=== PATIENT | male | born 1940 | race Caucasian/White ===

== ENCOUNTER 2016-12-23 10:04 | Day surgery (SDC) | payer MEDICARE, BC ==
[2016-12-23] MEDS ORDERED: LIDOCAINE 2% MDV (20MG/ML) 20ML VIAL IV ONE (14:00)
[2016-12-23] MEDS ORDERED: PROPOFOL 10 MG/ML VIAL IV ONE (14:00)
--- NOTE | 2016-12-25 14:23 | Operative Note ---
Dictated by Rachael Major DATE OF SURGERY: 12/23/2016 OPERATION: Surveillance COLONOSCOPY. ENDOSCOPIST: Reggie Yañez DO WASTE MANAGEMENT ENGINEER: Rachael Major ANESTHESIA: Provided by the anesthesia department with propofol titrated to patient effect. PROCEDURE: The patient had an opportunity to have his questions answered. He signed informed written consent and was taken back to the endoscopy suite. The patient was placed in the left lateral decubitus position and anesthesia was begun. Digital rectal exam was normal, and prostate was normal in palpation. A well-lubricated PCF-180 colonoscope was introduced into the rectum and advanced to the cecum uneventfully. The colon mucosa revealed moderate diverticulosis present in the rectosigmoid colon. The rest of the colon mucosa was normal. Distensibility was normal and the mucosal folds appeared normal. The scope was advanced to the cecum which was identified by the appendiceal orifice and ileocecal valve. Retroflexion was not performed, and so cecum was intubated twice. The scope was then withdrawn uneventfully, and the mucosa appeared normal with normal vascularity, mucosal folds, and distensibility. Bowel prep was good. The colonoscope was retroflexed which revealed [id number] internal hemorrhoids. The scope was then withdrawn completely from the patient. The patient tolerated the procedure well without any complication. IMPRESSION: 1. Moderate diverticulosis in the rectosigmoid colon. 2. [id number] internal hemorrhoids. 3. Otherwise normal colonoscopy to the cecum. RECOMMENDATIONS: Recommend repeat colonoscopy in 10 years as needed. Patient can discuss having procedure done with his PCP and whether or not he would like to have this done. Otherwise, the patient can resume his medications and regular diet. As always, thank you for allowing me to participate in the care of your patient. CC: Dr. Ethel REDD
== END 2016-12-23 13:10 | disposition home or self-care (01) ==
LOC: HOP 10:04
PROVIDERS: ATTEND Internal Medicine Gastroenterology
DX: Z09 Encounter for follow-up examination after completed treatment for conditions other than malignant neoplasm (principal); Z86.010 Personal history of colon polyps; K57.30 Diverticulosis of large intestine without perforation or abscess without bleeding; K64.8 Other hemorrhoids; E78.00 Pure hypercholesterolemia, unspecified; I10 Essential (primary) hypertension; E03.9 Hypothyroidism, unspecified

== ENCOUNTER 2018-01-18 14:10 | Inpatient (IN) | payer MEDICARE, BC ==
[2018-01-18 15:23] LABS: URINE APPEARANCE CLEAR; URINE BILIRUBIN NEGATIVE (NEGATIVE); URINE BLOOD TRACE-I (NEGATIVE); URINE COLOR YELLOW; URINE GLUCOSE (UA) NEGATIVE (NEGATIVE); URINE KETONE NEGATIVE (NEGATIVE); URINE LEUKOCYTE ESTERASE NEGATIVE (NEGATIVE); URINE NITRITE NEGATIVE (NEGATIVE); URINE PROTEIN TRACE (NEGATIVE)
[2018-01-18 15:29] LABS: URINE EPITHELIAL CELLS RARE (FEW); URINE RBC 0 - 2 (NONE SEEN); URINE WBC NONE SEEN (0-2/hpf)
[2018-01-18 15:46] LABS: HEMATOCRIT 37.5 % (42.0-52.0); HEMOGLOBIN 11.9 gm/dl (14.0-18.0); MEAN CELL VOLUME 93.3 fl (81-97); MEAN CORPUSCULAR HEMOGLOBIN 29.6 pg (27-33); MEAN CORPUSCULAR HGB CONC 31.7 g/dl (32-36); MEAN PLATELET VOLUME 10.7 fl (7.4-10.4); PLATELET COUNT 162 K/uL (130-400); RED BLOOD COUNT 4.02 M/uL (4.40-5.70); RED CELL DISTRIBUTION WIDTH 13.5 % (11.5-14.5); WHITE BLOOD COUNT W/O DIFF 16.1 K/uL (4.2-12.2)
--- NOTE | 2018-01-18 15:50 | Emergency Department Record ---
History of Present Illness - General Chief Complaint: Abdominal Pain Stated Complaint: ABDOMINAL PAIN,MIDDLE BACK PAIN,ELEVATED TEMP Time Seen by Provider: 01/18/18 15:00 Source: Patient Mode of Arrival: Ambulatory Limitations: No limitations, Physical limitation - History of Present Illness Initial Comments: pt has been having upper abd pain for 2 days that improves w tylenol but keeps returning. pt had n/v x 1. he had a normal bm with no relief MD Complaint: Abdominal pain, Flank pain Onset/Timin -: Days(s) Location: L Flank, R Flank, LUQ, RUQ Radiation: Back Severity scale (1-10): 5 Quality: Aching Consistency: Constant Improves With: Medication Worsens With: Medication Associated Symptoms: Nausea, Vomiting Treatments Prior to Arrival: NSAIDs - Related Data Home Medications Medication Instructions Recorded Confirmed Last Taken Amlodipine Besylate [Norvasc] 01/18/18 Unknown Aspirin Chewable 01/18/18 Unknown Atorvastatin Calcium 01/18/18 Unknown Levothyroxine Sodium [Synthroid] 01/18/18 Unknown Losartan/Hydrochlorothiazide 01/18/18 Unknown [Losartan-Hctz 100-25 mg Tab] Multivitamin [Multi-Vitamin Daily] 01/18/18 Unknown [place]-3 Fatty Acids/Fish Oil [Fish 1 each PO 01/18/18 Unknown Oil 1,000 mg Capsule] Omeprazole 01/18/18 Unknown Oxybutynin Chloride [Ditropan Xl] 01/18/18 Unknown Allergies Allergy/AdvReac Type Severity Reaction Status Date / Time Penicillins Allergy Intermediate HIVES Verified 01/18/18 15:13 bisoprolol [From Ziac] Allergy Mild HYPERSENSIT Verified 01/18/18 15:13 IVITY hydrochlorothiazide Allergy Mild HYPERSENSIT Verified 01/18/18 15:13 [From Ziac] IVITY Travel Screening - Travel/Exposure Within Last 30 Days Have you traveled within the last 30 days?: Yes Location Detail:: around [place] - Travel/Exposure Within Last Year Have you traveled outside the [place] in the last year?: No - Additonal Travel Details Have you been exposed to anyone with a communicable illness?: No - Travel Symptoms Symptom Screening: Fever (Subjective) Review of Systems Reviewed: No additional complaints except as noted below Constitutional: Reports: As per HPI. Denies: Chills, Fever, Malaise, Night sweats, Weakness, Weight change Eyes: Reports: As per HPI. Denies: Eye discharge, Eye pain, Photophobia, Vision change ENT: Reports: As per HPI. Denies: Congestion, Dental pain, Ear pain, Epistaxis , Hearing loss, Throat pain Respiratory: Reports: As per HPI. Denies: Cough, Dyspnea, Hemoptysis, Stridor, Wheezes Cardiovascular: Reports: As per HPI. Denies: Arrhythmia, Chest pain, Dyspnea on exertion, Edema, Murmurs, Orthopnea, Palpitations, Paroxysmal nocturnal dyspnea, Rheumatic Fever, Syncope Endocrine: Reports: As per HPI. Denies: Fatigue, Heat or cold intolerance, Polydipsia, Polyuria Gastrointestinal: Reports: As per HPI. Denies: Abdominal pain, Constipation, Diarrhea, Hematemesis, Hematochezia, Melena, Nausea, Vomiting Genitourinary: Reports: As per HPI. Denies: Dysuria, Frequency, Hematuria, Incontinence, Retention, Testicular pain, Testicular mass, Urgency Musculoskeletal: Reports: As per HPI. Denies: Arthralgia, Back pain, Gout, Joint swelling, Myalgia, Neck pain Skin: Reports: As per HPI. Denies: Bruising, Change in color, Change in hair/ nails, Lesions, Pruritus, Rash Neurological: Reports: As per HPI. Denies: Abnormal gait, Confusion, Headache, Numbness, Paresthesias, Seizure, Tingling, Tremors, Vertigo, Weakness Psychiatric: Reports: As per HPI. Denies: Anxiety, Auditory hallucinations, Depression, Homicidal thoughts, Suicidal thoughts, Visual hallucinations Hematological/Lymphatic: Reports: As per HPI. Denies: Anemia, Blood Clots, Easy bleeding, Easy bruising, Swollen glands Past Medical History - SOCIAL HISTORY Smoking Status: Never smoker Alcohol Use: None Drug Use: None - RESPIRATORY Hx Respiratory Disorders: Yes Hx Pneumonia: Yes (years ago) Hx Sleep Apnea: Yes Hx of CPAP: Yes - CARDIOVASCULAR Hx Cardio Disorders: Yes Hx Cardiac Cath: Yes (neg) Hx Hypertension: Yes Hx Coronary Stent: No Comment:: bradycardia-no problems - NEURO Hx Neuro Disorders: No - GI Hx GI Disorders: Yes Hx Reflux: Yes Hx of Polyps: Yes - Hx Genitourinary Disorders: Yes Hx Prostate Problems: Yes (enlarge) - ENDOCRINE Hx Endocrine Disorders: Yes Hx Thyroid Disease: Yes - MUSCULOSKELETAL Hx Musculoskeletal Disorders: Yes Hx Arthritis: Yes (bilat knees/hip) - PSYCH Hx Psych Problems: No - HEMATOLOGY/ONCOLOGY Hx Hematology/Oncology Disorders: No Family Medical History Any Significant Family History?: No Hx Cancer: Brother/Sister *Cancer Comment: Prostate ca Physical Exam - General General Appearance: Alert, Oriented x3, Cooperative, Mild distress - Head Head exam: Normal inspection - Eye Eye exam: Normal appearance, PERRL, EOMI Pupils: Normal accommodation - ENT ENT exam: Normal exam, Mucous membranes moist, Normal external ear exam, Normal orophraynx Ear exam: Normal external inspection. negative: External canal tenderness Nasal Exam: Normal inspection. negative: Discharge, Sinus tenderness Mouth exam: Normal external inspection, Tongue normal Teeth exam: Normal inspection. negative: Dental caries Throat exam: Normal inspection. negative: Tonsillar erythema, Tonsillar exudate - Neck Neck exam: Normal inspection, Full ROM. negative: Tenderness - Respiratory Respiratory exam: Normal lung sounds bilaterally. negative: Respiratory distress - Cardiovascular Cardiovascular Exam: Regular rate, Normal rhythm, Normal heart sounds - GI/Abdominal GI/Abdominal exam: Soft, Normal bowel sounds, Tenderness (upper quads) - Rectal Rectal exam: Deferred - exam: Deferred - Extremities Extremities exam: Normal inspection, Full ROM, Normal capillary refill. negative: Tenderness - Back Back exam: Reports: Normal inspection, Full ROM. Denies: Muscle spasm, Rash noted, Tenderness - Neurological Neurological exam: Alert, CN II-XII intact, Normal gait, Oriented X3 - Psychiatric Psychiatric exam: Normal affect, Normal mood - Skin Skin exam: Dry, Intact, Normal color, Warm Course Vital Signs 01/18/18 14:22 Temperature 99.6 F Pulse Rate 69 Respiratory 18 Rate Blood Pressure 113/37 Pulse Ox 94 L Medical Decision Making - Lab Data Result diagrams: 01/18/18 15:40 01/18/18 15:40 Lab Results 01/18/18 Range/Units 15:15 Urine Color Yellow Urine Appearance Clear Urine pH 7.0 (5.0-8.0) Ur Specific [place] 1.010 (1.002-1.030) Urine Protein Trace H (NEGATIVE) Urine Glucose (UA) Negative (NEGATIVE) Urine Ketones Negative (NEGATIVE) Urine Blood Trace-i (NEGATIVE) Urine Nitrite Negative (NEGATIVE) Urine Bilirubin Negative (NEGATIVE) Urine Urobilinogen 2.0 H (0.20 - 1.00) E.U./dL Ur Leukocyte Esterase Negative (NEGATIVE) Urine RBC 0 - 2 (NONE SEEN) Urine WBC None seen (0-2/hpf) Ur Epithelial Cells Rare (FEW) Disposition Disposition: Admit Clinical Impression: Acute cholecystitis Disposition: Still a Patient at [facility] Decision to Admit: Admit from ER Decision to Admit Date: 01/18/18 Decision to Admit Time: 17:01 Forms: Patient Portal Access Quality - Quality Measures Quality Measures: N/A - Blood Pressure Screening Does Patient Have Any of the Following: No Blood Pressure Classification: Normal BP Reading Systolic Measurement: 113 Diastolic Measurement: 37 Screening for High Blood Pressure: < Normal BP, F/U Not Required > [G8783]
[2018-01-18 15:58] LABS: PLATELET ESTIMATE NORMAL (NORMAL)
[2018-01-18 15:59] LABS: BLOOD UREA NITROGEN 15 mg/dL (8-23)
[2018-01-18 16:00] LABS: EST GLOMERULAR FILTRATION RATE > 60 mL/min; TOTAL PROTEIN 7.5 g/dL (6.6-8.7)
[2018-01-18 16:02] LABS: GLUCOSE,RANDOM 123 mg/dL (74-109)
[2018-01-18 16:05] LABS: ALBUMIN 3.8 g/dL (4.0-5.0); ALKALINE PHOSPHATASE 95 U/L (40-129); ALT/SGPT 7 U/L (<41); AST/SGOT 12 U/L (10.0-50.0); BILIRUBIN,DIRECT 0.3 mg/dL (0-0.3)
[2018-01-18] MEDS ORDERED: ERTAPENEM SODIUM 1 G in 0.9 % SODIUM CHLORIDE 100ML 100 ML IVPB ONE (16:58)
[2018-01-18] MEDS ORDERED: ONDANSETRON HCL IV 4 MG/2 ML VIAL IVP PRN (18:07)
[2018-01-18] MEDS ORDERED: ACETAMINOPHEN 500 MG TABLET PO PRN (18:07)
[2018-01-18] MEDS ORDERED: 0.9 % SODIUM CHLORIDE 1000ML 1,000 ML IV PRN (18:07)
[2018-01-18] MEDS: OXYBUTYNIN CHLORIDE 5MG TABLET PO SCH (22:14)
[2018-01-18] MEDS: HYDROMORPHONE HCL 2 MG/ML VIAL IV PRN (22:16)
[2018-01-19] MEDS: HYDROMORPHONE HCL 2 MG/ML VIAL IV PRN (04:34)
[2018-01-19 06:35] LABS: HEMATOCRIT 34.8 % (42.0-52.0); HEMOGLOBIN 10.8 gm/dl (14.0-18.0); MEAN CELL VOLUME 94.1 fl (81-97); MEAN PLATELET VOLUME 11.2 fl (7.4-10.4); PLATELET COUNT 136 K/uL (130-400); RED CELL DISTRIBUTION WIDTH 13.5 % (11.5-14.5); WHITE BLOOD COUNT W/O DIFF 14.8 K/uL (4.2-12.2)
[2018-01-19 06:43] LABS: MEAN CORPUSCULAR HEMOGLOBIN 29.1 pg (27-33)
[2018-01-19] MEDS ORDERED: SYNTHROID (DAW) 175MCG TABLET PO SCH (07:00)
[2018-01-19] MEDS ORDERED: PANTOPRAZOLE SODIUM 40 MG TABLET PO SCH ×2 (07:00→22:00)
--- NOTE | 2018-01-19 07:51 | CT SCAN REPORT ---
EXAM: EMERGENCY CT SCAN OF THE ABDOMEN AND PELVIS WITHOUT CONTRAST HISTORY: BILATERAL FLANK PAIN AND MID BACK PAIN FOR FOUR DAYS. PRIOR HIP REPLACEMENT TEN YEARS AGO AND HERNIA REPAIR. TECHNIQUE: Axial CT scan of the abdomen and pelvis was performed without oral or IV contrast. Comparison: No prior CT with which to compare. FINDINGS: The patient is postop left UMANG creating considerable artifact in the lower pelvis. There appears to be mild thickening of the wall of the gallbladder. In addition , there is hazy density surrounding much of the gallbladder and findings are suspicious for acute cholecystitis. Clinical correlation is suggested. No actual calcified gallstones are seen. No intrarenal calculi identified on either side. No hydronephrosis or hydroureter is seen on either side as well. The distal most aspect of the left ureter is obscured by the extensive left UMANG artifact, but as visualized no definite ureteral calculus is seen on either side and no bladder calculus evident. Evaluation of the bowel and viscera very limited without oral or IV contrast. Given this limitation, no definite hepatic, splenic, adrenal, or pancreatic mass identified. Small exophytic mass arising from the upper pole of the left kidney measures about 1.4 cm in size and has a noncontrast CT density of about 14. This may just represent an incidental cyst, but is incompletely evaluated without IV contrast. If not previously documented, follow-up MRI of the kidneys could be performed for further assessment. There is some hazy density in the adipose tissue in the region of the jose and near the head of the pancreas. This is probably just secondary to presumed acute cholecystitis rather than a primary inflammatory process of the pancreas or duodenum although a duodenitis in particular would be difficult to exclude. Small collection of air along the medial aspect of the descending portion of the duodenal sweep is probably just a small duodenal diverticulum rather than an ulcer. There is some ectasia of the right common iliac artery measuring about 2.3 cm in size. Moderate diverticulosis sigmoid and lower descending colon, but no definite diverticulitis identified. There are segments of the colon that have a slightly thick walled appearance. This is nonspecific and may simply be due to incomplete distention. No appendicitis identified. The cecum is somewhat inverted. Small periumbilical anterior abdominal wall hernia containing adipose tissue, but no bowel. There is some bibasilar interstitial infiltrate right greater than left which could be acute or chronic. No free intraperitoneal air or free intraperitoneal fluid identified. Prominent spurring in the lower thoracic spine and some facet joint arthropathy in the lumbar spine. IMPRESSION: 1. FINDINGS INVOLVING THE GALLBLADDER PROBABLY REPRESENTING ACUTE CHOLECYSTITIS. SOME INFLAMMATORY CHANGE EXTENDS ADJACENT TO THE DUODENUM IN THE REGION OF THE HEAD OF THE PANCREAS. THERE IS A SMALL AIR COLLECTION ALONG THE MEDIAL ASPECT OF THE DESCENDING PORTION OF THE DUODENAL SWEEP. THIS IS PROBABLY JUST A SMALL DIVERTICULUM RATHER THAN DUODENAL ULCER DISEASE AND INFLAMMATORY CHANGES ABOUT THE DUODENUM ARE PROBABLY SECONDARY TO ACUTE CHOLECYSTITIS ALTHOUGH A DUODENITIS WOULD BE DIFFICULT TO EXCLUDE. 2. NO URINARY TRACT CALCULI OR HYDRONEPHROSIS EVIDENT. THE DISTAL LEFT URETER IS OBSCURED BY EXTENSIVE ARTIFACT FROM THE LEFT UMANG. 3. PROMINENT DIVERTICULOSIS LOWER DESCENDING AND SIGMOID COLON, BUT NO DIVERTICULITIS EVIDENT. 4. PROBABLE SMALL UPPER POLE LEFT RENAL CYST ALTHOUGH INCOMPLETELY EVALUATED WITHOUT IV CONTRAST. THIS COULD BE CONFIRMED WITH FOLLOW-UP MRI IF CLINICALLY WARRANTED. 5. SMALL PERIUMBILICAL ANTERIOR ABDOMINAL WALL HERNIA. 6. PROMINENT SPURRING LOWER THORACIC SPINE AND DEGENERATIVE CHANGES IN THE LUMBAR SPINE. JOB NUMBER: [id number] [facility]
[2018-01-19] MEDS: OXYBUTYNIN CHLORIDE 5MG TABLET PO SCH (09:59)
[2018-01-19] MEDS ORDERED: MECLIZINE 25 MG TABLET PO ONE (10:00)
[2018-01-19] MEDS ORDERED: HYDROCHLOROTHIAZIDE 25 MG TABLET PO SCH (10:00)
[2018-01-19] MEDS ORDERED: FAMOTIDINE 20MG TABLET PO ONE (10:00)
[2018-01-19] MEDS ORDERED: ACETAMINOPHEN 1,000 MG/100 ML BTL IV ONE (10:00)
[2018-01-19] MEDS ORDERED: AMLODIPINE BESYLATE 5MG TAB PO SCH (10:00)
[2018-01-19] MEDS ORDERED: ASPIRIN 81 MG CHEWABLE TABLET PO SCH ×2 (10:00→22:00)
[2018-01-19] MEDS ORDERED: METOCLOPRAMIDE 10 MG TABLET PO ONE (10:00)
[2018-01-19] MEDS ORDERED: LOSARTAN POTASSIUM 100 MG TABLET PO SCH (10:00)
--- NOTE | 2018-01-19 12:11 | History and Physical Report ---
DATE: 01/19/2018 CHIEF COMPLAINT: Abdominal pain. HISTORY OF PRESENT ILLNESS: The patient is a 77-year-old male who had about a 4-day history of abdominal pain. This did settle in his right upper quadrant. He was nauseated with this, and the pain became so great he was seen at [facility] ER. He was seen in the ER where a full workup was done. This did include imaging studies as well as laboratory values. He had an elevated white blood cell count at around 16,000. CT scan was done which did show findings consistent with acute cholecystitis. He had pericholecystic fluid, edema, mild gallbladder wall thickening. He also had some adjacent inflammation of his duodenum secondary to reactive from his cholecystitis. He states that he has had some mild issues with biliary colic in the past. PAST MEDICAL HISTORY: Significant for hypertension, sleep apnea, urinary incontinence. PAST SURGICAL HISTORY: Left hip replacement, right inguinal hernia, heart catheterization. CURRENT MEDICATIONS: 1. Losartan. 2. Amlodipine. 3. Atorvastatin. 4. Cialis. 5. Omeprazole. 6. Aspirin. ALLERGIES: PENICILLIN, ZIAC. SOCIAL HISTORY: He denies any tobacco or alcohol usage. PHYSICAL EXAMINATION: VITAL SIGNS: Height 5 feet 10 inches, weight 242 pounds. HEART: Regular. LUNGS: Decreased. ABDOMEN: Soft, obese. There is right upper quadrant pain with guarding. EXTREMITIES: No trace of edema. IMPRESSION: Right upper quadrant pain most likely secondary to acute cholecystitis. PLAN: We plan on laparoscopic cholecystectomy, possible open. Risks, benefits, and alternatives were discussed. Risks include bleeding, infection, postop bile leak, need for drain placement. We also discussed possible open laparotomy or findings such as perforated duodenal ulcer and cholecystitis. He understands this fully. Thank you for this referral. IVANIA
[2018-01-19] MEDS ORDERED: GLYCOPYRROLATE 0.2 MG/ML ML IV ONE (16:03)
[2018-01-19] MEDS ORDERED: NEOSTIGMINE 1 MG/1 ML,10ML VIAL IV ONE (16:03)
[2018-01-19] MEDS ORDERED: ROCURONIUM BROMIDE 50MG/5ML VIAL IV ONE (16:03)
[2018-01-19] MEDS ORDERED: MIDAZOLAM HCL 2MG/2ML VIAL IV ONE (16:03)
[2018-01-19] MEDS ORDERED: SEVOFLURANE 250 ML INH ONE (16:03)
[2018-01-19] MEDS ORDERED: SUCCINYLCHOLINE 20 MG/ML 10ML IVP ONE (16:03)
[2018-01-19] MEDS ORDERED: FENTANYL PF 100MCG/2ML VIAL IV ONE (16:03)
[2018-01-19] MEDS ORDERED: KETOROLAC 30 MG/ML VIAL IVP ONE (16:03)
[2018-01-19] MEDS ORDERED: PROPOFOL 10 MG/ML VIAL IV ONE (16:03)
[2018-01-19] MEDS ORDERED: EPHEDRINE SULFATE 50 MG/ML ML IV ONE (16:03)
[2018-01-19] MEDS ORDERED: ONDANSETRON HCL IV 4 MG/2 ML VIAL IVP ONE (16:03)
[2018-01-19] MEDS ORDERED: LIDOCAINE 2% MDV (20MG/ML) 20ML VIAL IV ONE (16:03)
[2018-01-19] MEDS ORDERED: HYDROMORPHONE HCL 2 MG/ML VIAL IV ONE (16:06)
[2018-01-19] MEDS ORDERED: HYDROCODONE/APAP 5/325MG TABLET PO PRN (16:24)
[2018-01-19] MEDS ORDERED: ATORVASTATIN 20 MG TABLET PO SCH ×2 (17:00→22:00)
--- NOTE | 2018-01-21 11:50 | Operative Note ---
DATE OF SURGERY: 01/19/2018 Surgeon: Tylor Saba DO PREOPERATIVE DIAGNOSIS: Acute cholecystitis. POSTOPERATIVE DIAGNOSIS: Acute gangrenous cholecystitis. Indication: The patient is a 80-year-old male who has had about a 3- to 4-day history of abdominal pain. He did present to the ER last night where full workup was done. This did show findings consistent with acute cholecystitis. We did discuss cholecystectomy. Risks, benefits, and alternatives were discussed. Risks include bleeding, infection, ductal injury, possible conversion to open, postoperative bile leak. He understood this fully. Thereafter, consent was signed and questions answered. PROCEDURE: He was taken to the operating room and placed in a supine position. General anesthesia was administered per the department of anesthesia. The patient's abdomen was prepped and draped in the usual sterile fashion. Adequate timeout was performed. He did receive preoperative antibiotics as well as multimodal pain therapy and DVT prophylaxis. The supraumbilical region was anesthetized with a total of 4 mL of 0.25% Sensorcaine with epinephrine. A 2 cm supraumbilical incision was made. This was carried down to the anterior rectus fascia. This was incised. Melvin clamps were placed on the fascial edges and brought up into the wound. Stay sutures of 0 Vicryl were placed. Posterior rectus sheath was identified and incised. The peritoneal cavity was entered bluntly. At this time, a 10 mm blunt Marcial port was placed. Adequate pneumoperitoneum was established. An additional 5 mm epigastric and two 5 mm right subcostal ports were placed. There were inflammatory changes at the right upper quadrant. The omentum was peeled down exposing a gangrenous gallbladder. Despite the gangrenous nature, this was still tense and distended. A Biermann needle was used to decompress gallbladder of about 80 mL of purulent bile. Further cephalad and lateral retraction was applied. The omentum was then taken down bluntly with suction dissector. The hepatocystic triangle was thoroughly dissected out. The distal half of the gallbladder was released from the cystic plate. The cystic duct and cystic artery were clearly identified. There was no aberrant anatomy, no posterior ductal structures. There was enlarged node of Calot noted. The cystic artery was taken down with the Maurice harmonic. Cystic duct was doubly clipped and cut in a standard fashion. Gallbladder essentially peeled out of the liver bed with some gentle traction. This was placed in an EndoCatch bag and brought out through the umbilical port. Right upper quadrant was then rechecked. Two liters of irrigation was used to irrigate purulent bile. There was no bleeding noted. There was no bile leak noted. No bowel injury noted. The patient was leveled out. A bit of further suction was done above the liver. Pneumoperitoneum was released. All ports were removed. The fascia was closed with 0 Vicryl in a [id number] fashion. The skin at all 4 ports was closed with 4-0 Vicryl. The patient was taken to the recovery room in satisfactory condition. FINDINGS AT THE TIME OF SURGERY: Acute gangrenous cholecystitis. CC: Shayna REDD
== END 2018-01-19 18:45 | disposition home or self-care (01) | DRG 416 ==
LOC: ER 14:10 → MEDSURG 17:59
PROVIDERS: ADMIT Surgery; ATTEND Surgery
PROC: 0FT40ZZ Resection of Gallbladder, Open Approach (ICD-10-PCS; principal; 2018-01-18)
DX: K81.0 Acute cholecystitis (principal); I10 Essential (primary) hypertension; G47.30 Sleep apnea, unspecified; M19.90 Unspecified osteoarthritis, unspecified site; K21.9 Gastro-esophageal reflux disease without esophagitis; Z96.642 Presence of left artificial hip joint
CPT/HCPCS: 74176; 80048; 80076; 81001; 85027; 96365; 99285; C1776; J0330; J1885; J2405; J2710